=== PATIENT | male | born 1995 | race Caucasian/White ===

== ENCOUNTER 2020-07-16 17:46 | Emergency (ER) | payer BC ==
[2020-07-16] MEDS ORDERED: ONDANSETRON 4 MG/2 ML VIAL ONE (20:12)
[2020-07-16] MEDS ORDERED: NA CHLORIDE 0.9% 1,000 ML ONE ×2 (20:12→21:09)
[2020-07-16 20:20] LABS: Absolute Lymphocytes (CBC) 2.3 K/uL (0.7-4.9); Basophils % 0.6 % (0-1.3); Hematocrit 51.3 % (39.6-49.0); Lymphocytes % 15.5 % (15.3-44.8); MPV 7.7 fL (7.6-11.3); RBC Red Blood Cell Count 5.86 M/uL (4.33-5.43)
[2020-07-16 20:40] LABS: Albumin 4.5 g/dL (3.4-5.0); Bilirubin Direct 0.2 mg/dL (0-0.2); Bilirubin Total 0.5 mg/dL (0.2-1.0); Protein, Total 8.5 g/dL (6.4-8.2)
[2020-07-16 22:29] LABS: Potassium 4.3 mmol/L (3.5-5.1)
--- NOTE | 2020-07-16 22:45 | ER ---
Nurse's Notes [facility] Name: Stephie Chinchilla Age: 25 yrs Sex: Male : 1995 Arrival Date: 07/16/2020 Time: 17:50 Bed 7 Private MD: Diagnosis: Dehydration Presentation: 07/16 17:54 Chief complaint: Patient states: has been drinking too much ETOH over the last 2-3 days sv and has not been feeling good. Unable to eat. Coronavirus screen: Client denies travel out of the [place] in the last 14 days. At this time, the client does not indicate any symptoms associated with coronavirus-19. Ebola Screen: No symptoms or risks identified at this time. Risk Assessment: Do you want to hurt yourself or someone else? Patient reports no desire to harm self or others. Onset of symptoms was July 16, 2020. 17:54 Method Of Arrival: Ambulatory sv 17:54 Acuity: SONU 3 sv 17:55 Initial Sepsis Screen: Does the patient meet any 2 criteria? HR > 90 bpm. No. Patient's sv initial sepsis screen is negative. Does the patient have a suspected source of infection? No. Patient's initial sepsis screen is negative. Triage Assessment: 17:57 General: Appears in no apparent distress. comfortable, Behavior is calm, cooperative, sv appropriate for age. Pain: Denies pain. Neuro: Level of Consciousness is awake, alert, obeys commands, Oriented to person, place, time, situation, Gait is steady. Respiratory: Respiratory effort is even, unlabored, Respiratory pattern is regular, symmetrical. Historical: - Allergies: 17:55 No Known Drug Allergies; sv - PMHx: 17:55 None; sv - PSHx: 17:55 None; sv - Immunization history:: Flu vaccine is not up to date. - Social history:: Smoking status: Patient denies any tobacco usage or history of. Patient uses alcohol, Patient/guardian denies using street drugs, IV drugs. Screenin:14 Abuse screen: Denies threats or abuse. Denies injuries from another. Nutritional mg2 screening: No deficits noted. Tuberculosis screening: No symptoms or risk factors identified. Fall Risk IV access (20 points). Assessment: 19:45 General: Appears in no apparent distress. comfortable, Behavior is calm, cooperative. mg2 Pain: Complains of pain in abdomen. Neuro: Level of Consciousness is awake, alert, obeys commands, Oriented to person, place, time, situation. Cardiovascular: Capillary refill < 3 seconds Patient's skin is warm and dry. Respiratory: Airway is patent Respiratory effort is even, unlabored, Respiratory pattern is regular, symmetrical. GI: Reports lower abdominal pain, upper abdominal pain, nausea, vomiting. : No signs and/or symptoms were reported regarding the genitourinary system. EENT: No deficits noted. Derm: Skin is intact, is healthy with good turgor, Skin is pink, warm \T\ dry. normal. Musculoskeletal: Circulation, motion, and sensation intact. Capillary refill < 3 seconds. 21:17 Reassessment: Patient appears in no apparent distress at this time. Patient and/or mg2 family updated on plan of care and expected duration. Pain level reassessed. Patient is alert, oriented x 3, equal unlabored respirations, skin warm/dry/pink. 22:10 Reassessment: Patient appears in no apparent distress at this time. Patient and/or rr5 family updated on plan of care and expected duration. Pain level reassessed. Patient is alert, oriented x 3, equal unlabored respirations, skin warm/dry/pink. 22:30 Reassessment: complaints of headache, ED provider aware with order made and carriedout. rr5 22:51 Reassessment: Patient appears in no apparent distress at this time. Patient is alert, rr5 oriented x 3, equal unlabored respirations, skin warm/dry/pink. discharge instruction given and explained without complaints made Patient states feeling better. Patient states symptoms have improved. Vital Signs: 17:55 BP 144 / 96; Pulse 107; Resp 16; Temp 98.2; Pulse Ox 100% ; Weight 68.04 kg; Height 5 sv ft. 8 in. (172.72 cm); 21:15 BP 133 / 104; Pulse 108; Resp 18; Pulse Ox 100% on R/A; mg2 22:10 BP 131 / 95; Pulse 95; Resp 17; Pulse Ox 99% ; rr5 22:52 BP 122 / 85; Pulse 89; Resp 19; Pulse Ox 99% ; rr5 17:55 Body Mass Index 22.81 (68.04 kg, 172.72 cm) sv ED Course: 17:50 Patient arrived in ED. as 17:54 Arm band placed on. sv 17:55 Triage completed. sv 19:29 Sunny Frey MD is Attending Physician. tw4 19:45 Inserted saline lock: 20 gauge in right antecubital area, using aseptic technique. mg2 Blood collected. 19:53 Mikael Ford, RN is Primary Nurse. mg2 21:05 No provider procedures requiring assistance completed. mg2 21:15 Patient has correct armband on for positive identification. Pulse ox on. NIBP on. Door mg2 closed. Warm blanket given. 22:53 IV discontinued, intact, bleeding controlled, No redness/swelling at site. Pressure rr5 dressing applied. Administered Medications: 19:59 Drug: Zofran (Ondansetron) 4 mg Route: IVP; Site: right antecubital; mg2 21:46 Follow up: Response: No adverse reaction mg2 20:00 Drug: NS 0.9% 1000 ml Route: IV; Rate: 1 bolus; Site: right antecubital; mg2 21:46 Follow up: Response: No adverse reaction; IV Status: Completed infusion; IV Intake: mg2 1000ml 22:02 Follow up: Response: No adverse reaction; IV Status: Completed infusion; IV Intake: mg2 1000ml 20:53 Drug: NS 0.9% 1000 ml Route: IV; Rate: 1 bolus; Site: right antecubital; mg2 22:10 Follow up: Response: No adverse reaction; IV Status: Completed infusion; IV Intake: rr5 1000ml 22:39 Drug: Tylenol 1000 mg Route: PO; rr5 22:52 Follow up: Response: No adverse reaction; Pain is decreased rr5 Intake: 21:46 IV: 1000ml; Total: 1000ml. mg2 22:02 IV: 1000ml; Total: 2000ml. mg2 22:10 IV: 1000ml; Total: 3000ml. rr5 Outcome: 22:44 Discharge ordered by . tw4 22:53 Discharged to home ambulatory. rr5 22:53 Condition: stable 22:53 Discharge instructions given to patient, Instructed on discharge instructions, follow up and referral plans. Demonstrated understanding of instructions, follow-up care. 22:54 Patient left the ED. rr5 Signatures: Janet Vega RN RN Lilian Kline Terrence, MD MD tw4 Mikael Ford RN RN [facility] [place] Talavera, Ezra, RN RN rr5 Corrections: (The following items were deleted from the chart) 17 17:54 Acuity: SONU 3 sv sv 17:57 17:55 Resp 16bpm; Pulse Ox 100%; Temp 98.2F; 68.04 kg; Height 5 ft. 8 in.; BMI: 22.8; svsv 18:14 17:54 Acuity: SONU 2 sv sv
--- NOTE | 2020-07-16 22:45 | EDPHYS ---
Physician Documentation [facility] Name: Stephie Chinchilla Age: 25 yrs Sex: Male : 1995 Arrival Date: 07/16/2020 Time: 17:50 Bed 7 Private MD: ED Physician Sunny Frey HPI: 07/17 03:05 This 25 yrs old Male presents to ER via Ambulatory with complaints of Alcohol tw4 Withdrawal. 03:05 The patient presents to the emergency department with nausea, vomiting. Onset: The tw4 symptoms/episode began/occurred yesterday. Possible causes: unknown. The symptoms are aggravated by nothing. The symptoms are alleviated by nothing. The patient has not experienced similar symptoms in the past. Historical: - Allergies: 07/16 17:55 No Known Drug Allergies; sv - PMHx: 17:55 None; sv - PSHx: 17:55 None; sv - Immunization history:: Flu vaccine is not up to date. - Social history:: Smoking status: Patient denies any tobacco usage or history of. Patient uses alcohol, Patient/guardian denies using street drugs, IV drugs. ROS: 07/17 03:05 Constitutional: Negative for fever, chills, and weight loss, Eyes: Negative for injury, tw4 pain, redness, and discharge, Cardiovascular: Negative for chest pain, palpitations, and edema, Respiratory: Negative for shortness of breath, cough, wheezing, and pleuritic chest pain, Back: Negative for injury and pain, MS/Extremity: Negative for injury and deformity, Skin: Negative for injury, rash, and discoloration. Abdomen/GI: Positive for abdominal pain, nausea and vomiting, nausea, vomiting, Negative for nausea, vomiting, and diarrhea, diarrhea, constipation, abdominal cramps, abdominal distension. Exam: 03:05 Constitutional: This is a well developed, well nourished patient who is awake, alert, tw4 and in no acute distress. Head/Face: Normocephalic, atraumatic. Chest/axilla: Normal chest wall appearance and motion. Nontender with no deformity. No lesions are appreciated. Cardiovascular: Regular rate and rhythm with a normal S1 and S2. No gallops, murmurs, or rubs. Normal PMI, no JVD. No pulse deficits. Respiratory: Lungs have equal breath sounds bilaterally, clear to auscultation and percussion. No rales, rhonchi or wheezes noted. No increased work of breathing, no retractions or nasal flaring. Abdomen/GI: Soft, non-tender, with normal bowel sounds. No distension or tympany. No guarding or rebound. No evidence of tenderness throughout. Back: No spinal tenderness. No costovertebral tenderness. Full range of motion. MS/ Extremity: Pulses equal, no cyanosis. Neurovascular intact. Full, normal range of motion. Neuro: Awake and alert, GCS 15, oriented to person, place, time, and situation. Cranial nerves II-XII grossly intact. Motor strength 5/5 in all extremities. Sensory grossly intact. Cerebellar exam normal. Normal gait. Vital Signs: 07/16 17:55 BP 144 / 96; Pulse 107; Resp 16; Temp 98.2; Pulse Ox 100% ; Weight 68.04 kg; Height 5 sv ft. 8 in. (172.72 cm); 21:15 BP 133 / 104; Pulse 108; Resp 18; Pulse Ox 100% on R/A; mg2 22:10 BP 131 / 95; Pulse 95; Resp 17; Pulse Ox 99% ; rr5 22:52 BP 122 / 85; Pulse 89; Resp 19; Pulse Ox 99% ; rr5 17:55 Body Mass Index 22.81 (68.04 kg, 172.72 cm) sv MDM: 19:31 Patient medically screened. tw4 07/17 03:05 Differential diagnosis: Nonspecific abd pain, gastritis, cholecystitis, pancreatitis. tw4 Data reviewed: vital signs, nurses notes. Data interpreted: Pulse oximetry: Interpretation: normal. Counseling: I had a detailed discussion with the patient and/or guardian regarding: the historical points, exam findings, and any diagnostic results supporting the discharge/admit diagnosis. Special discussion: I discussed with the patient/guardian in detail that at this point there is no indication for admission to the hospital. It is understood, however, that if the symptoms persist or worsen the patient needs to return immediately for re-evaluation. 07/16 19:48 Order name: Basic Metabolic Panel; Complete Time: 20:45 tw4 07/16 20:45 Interpretation: Normal except: GLUC 129; GFR 57; CRE 1.49. tw4 07/16 19:48 Order name: CBC with Diff; Complete Time: 20:45 tw4 07/16 20:45 Interpretation: Normal except: WBC 14.8; RBC 5.86; HCT 51.3; MCV 87.6; NEUT A 11.6; tw4 EDUARDO% 78.7; PLT 408. 07/16 19:48 Order name: Hepatic Function; Complete Time: 20:45 tw4 07/16 20:45 Interpretation: Normal except: TP 8.5; GLOB 4.0. tw4 07/16 19:48 Order name: Lipase; Complete Time: 20:45 tw4 07/16 20:47 Interpretation: Abnormal: LIP 63. tw4 07/16 21:46 Order name: BMP; Complete Time: 22:42 mg2 07/16 19:48 Order name: IV Saline Lock; Complete Time: 20:00 tw4 07/16 19:48 Order name: Labs collected and sent; Complete Time: 20:00 tw4 Administered Medications: 07/16 19:59 Drug: Zofran (Ondansetron) 4 mg Route: IVP; Site: right antecubital; mg2 21:46 Follow up: Response: No adverse reaction mg2 20:00 Drug: NS 0.9% 1000 ml Route: IV; Rate: 1 bolus; Site: right antecubital; mg2 21:46 Follow up: Response: No adverse reaction; IV Status: Completed infusion; IV Intake: mg2 1000ml 22:02 Follow up: Response: No adverse reaction; IV Status: Completed infusion; IV Intake: mg2 1000ml 20:53 Drug: NS 0.9% 1000 ml Route: IV; Rate: 1 bolus; Site: right antecubital; mg2 22:10 Follow up: Response: No adverse reaction; IV Status: Completed infusion; IV Intake: rr5 1000ml 22:39 Drug: Tylenol 1000 mg Route: PO; rr5 22:52 Follow up: Response: No adverse reaction; Pain is decreased rr5 Disposition: 07/16/20 22:44 Discharged to Home. Impression: Dehydration. - Condition is Stable. - Discharge Instructions: Dehydration, Adult, Alcohol Abuse and Nutrition, What You Need to Know About Alcohol Abuse and Dependence, Youth. - Medication Reconciliation Form, Thank You Letter, Antibiotic Education, Prescription Opioid Use, Work release form form. - Follow up: Private Physician; When: Upon discharge from the Emergency Department; Reason: Recheck today's complaints, Continuance of care, Re-evaluation by your physician. - Problem is new. - Symptoms have improved. Signatures: Dispatcher [employer] EDJanet Howell, RN RN Sunny Tejeda MD MD tw4 Mikael Ford, RN RN [facility] [place] Ezra Talavera RN RN rr5 Corrections: (The following items were deleted from the chart) 22:54 22:44 07/16/2020 22:44 Discharged to Home. Impression: Dehydration. Condition is rr5 Stable. Forms are Medication Reconciliation Form, Thank You Letter, Antibiotic Education, Prescription Opioid Use. Follow up: Private Physician; When: Upon discharge from the Emergency Department; Reason: Recheck today's complaints, Continuance of care, Re-evaluation by your physician. Problem is new. Symptoms have improved. tw4 07/17 03:07 03:05 Constitutional: Negative for fever, chills, and weight loss, Eyes: Negative for tw4 injury, pain, redness, and discharge, Cardiovascular: Negative for chest pain, palpitations, and edema, Respiratory: Negative for shortness of breath, cough, wheezing, and pleuritic chest pain, Abdomen/GI: Negative for abdominal pain, nausea, vomiting, diarrhea, and constipation, Back: Negative for injury and pain, MS/Extremity: Negative for injury and deformity, Skin: Negative for injury, rash, and discoloration, Neuro: Negative for headache, weakness, numbness, tingling, and seizure, tw4
[2020-07-16] MEDS ORDERED: ACETAMINOPHEN 500 MG TAB ONE (22:52)
[2020-07-18 21:33] VITALS: TEMP 98.2
[2020-07-18 21:35] VITALS: O2SAT 99
[2020-07-18 21:36] VITALS: BP 122/85
== END 2020-07-16 22:54 | disposition home or self-care (01) ==
LOC: ER 17:46
DX: E86.0 Dehydration (principal)
CPT/HCPCS: 96361; 85025; 80048 ×2; 36415; 80076; 83690; 96374; 99284; J7030 ×2; J2405